=== PATIENT | female | born 1990 | race Caucasian/White ===

== ENCOUNTER 2023-09-04 11:05 | Emergency (ER) | payer SELFPAY ==
[2023-09-04 11:12] VITALS: BP 129/86
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
[2023-09-04] MEDS: TYLENOL 650 MG PO (12:52)
[2023-09-04 13:37] VITALS: BP 134/87
[2023-09-04 13:49] VITALS: BP 134/71
== END 2023-09-04 13:51 | disposition home or self-care (01) ==
LOC: EMR 11:05
PROVIDERS: EMERGENCY PHYSICIAN Emergency Medicine; FAMILY PHYSICIAN Internal Medicine
DX: S20.229A Contusion of unspecified back wall of thorax, initial encounter (principal); V04.00XA Pedestrian on foot injured in collision with heavy transport vehicle or bus in nontraffic accident, initial encounter; Y93.89 Activity, other specified; Y92.89 Other specified places as the place of occurrence of the external cause; Y99.0 Civilian activity done for income or pay; R03.0 Elevated blood-pressure reading, without diagnosis of hypertension; Z88.6 Allergy status to analgesic agent
CPT/HCPCS: 99283; 72072